=== PATIENT | female | born 1965 | race Caucasian/White ===

== ENCOUNTER 2020-10-20 15:47 | Inpatient (IN) | payer BC, SELFPAY ==
[~2020-10-20] VITALS: Ht 165.1 cm; Wt 63.5 kg
[2020-10-20 16:01] VITALS: BP_SYST 161
--- NOTE | 2020-10-20 16:04 | NUR ---
Patient to ER bed 06 to gown for evaluation. Side rails up.
--- NOTE | 2020-10-20 16:10 | NUR ---
ER DR. FENG AT THE BEDSIDE EVALUATING PT
--- NOTE | 2020-10-20 16:15 | NUR ---
PT CAME IN FROM HOME WITH C/O ESTES STARTING THIS MORNING. REPORTS THAT IS HAS BEEN UNRELIEVED WITH AT HOME MOTRIN. REPORTS FEELING GENERALLY WEAK AND ACHY. PT AMBULATORY WITH STEADY GAIT. AAOX4, V/S STABLE
[2020-10-20] MEDS ORDERED: ONDANSETRON HCL 4 MG/2 ML VIAL IVP ONE ×3 (16:30→22:15)
[2020-10-20] MEDS ORDERED: fentaNYL CITRATE/PF 100 MCG/2 ML AMP IVP ONE ×3 (16:30→22:15)
[2020-10-20] MEDS ORDERED: NACL 0.9% 1,000 ML IV ONE (16:30)
[2020-10-20 17:12] LABS: HEMATOCRIT 34.3 % (36-48); HEMOGLOBIN 11.1 g/dL (12.0-16.0); MEAN CORPUSCULAR HEMOGLOBIN 27 pg (27-31); MEAN CORPUSCULAR HGB CONC 32 % (32-36); MEAN CORPUSCULAR VOLUME 82 fL (79.0-98.0); PLATELET COUNT (AUTO) 644 K/uL (130-430); RED BLOOD CELL COUNT(AUTO) 4.18 MIL/uL (4.2-6.2); RED CELL DISTRIBUTION WIDTH 15.3 % (9.0-15.0); WHITE BLOOD COUNT (AUTO) 29.6 K/uL (4.8-10.8)
[2020-10-20 17:17] LABS: BILIRUBIN,URINE 1+ (NEGATIVE); COLOR,URINE YELLOW (YELLOW); GLUCOSE,URINE NEGATIVE (NEGATIVE); KETONES,URINE 3+ (NEGATIVE); LEUKOCYTE ESTERASE ,URINE NEGATIVE (NEGATIVE); NITRITE, URINE NEGATIVE (NEGATIVE); PROTEIN URINE NEGATIVE (NEGATIVE); UROBILINOGEN,URINE 0.2 (0.2-1.0)
[2020-10-20 17:20] LABS: ANION GAP 11 (5-15); CHLORIDE 99 mmol/L (98-107); CREATININE 0.67 mg/dL (0.55-1.30); GLUCOSE 112 mg/dL (70-99); POTASSIUM 3.2 mmol/L (3.5-5.1); SODIUM SERUM 133 mmol/L (136-145); UREA NITROGEN, BLOOD 11 mg/dL (8-21)
[2020-10-20 17:29] LABS: ALANINE AMINOTRANSFERASE 21 U/L (12-78); ALBUMIN 3.9 g/dL (3.4-4.8); ASPARTATE AMINOTRANSFERASE 20 U/L (10-37); TOTAL BILIRUBIN 0.5 mg/dL (0.0-1.0)
[2020-10-20 17:30] LABS: INR 0.9 (0.8-1.2); PROTHROMBIN TIME 9.7 SECS (9.5-12.5)
[2020-10-20 17:37] LABS: ALCOHOL, BLOOD < 3 mg/dL (<10); GFR AFRICAN AMERICAN 118 mL/min (>90)
[2020-10-20 17:54] LABS: BARBITURATE, URINE NEGATIVE (NEG <=200); BENZODIAZEPINE, URINE NEGATIVE (NEG <=150); CANNABINOID, URINE NEGATIVE (NEG <=50); COCAINE, URINE NEGATIVE (NEG <=150); METHAMPHETAMINES SCREEN,URINE NEGATIVE (NEG <=500); OPIATE, URINE NEGATIVE (NEG <=100); PHENCYCLIDINE SCREEN,URINE NEGATIVE (NEG <=25); UR TRICYCLIC ANTIDEPRESSANTS NEGATIVE (NEG <=300); URINE AMPHETAMINE NEGATIVE (NEG <=500); URINE METHADONE NEGATIVE (NEG <=200); URINE OXYCODONE SCREEN NEGATIVE (NEG <=100); URINE PROPOXYPHENE SCREEN NEGATIVE (NEG <=300)
[2020-10-20 18:14] LABS: BLOOD, URINE TRACE (NEGATIVE)
--- NOTE | 2020-10-20 18:30 | NUR ---
PT'S PAIN HAS RETURNED AND IS REQUESTING MORE PAIN MEDICATION. MD MADE AWARE
[2020-10-20 18:41] LABS: CLARITY/URINE SLIGHTLY HAZY (CLEAR)
[2020-10-20 18:42] LABS: BACTERIA,URINE FEW /HPF (None Seen); MUCUS,URINE 1+ /LPF (None Seen); WBC,URINE 0-3 /HPF (0-3)
[2020-10-20 18:50] LABS: BAND % (MANUAL) 17 % (0-6)
[2020-10-20 18:51] LABS: BASOPHILS % (MANUAL) 0 % (0-2); EOSINOPHILS % (MANUAL) 0 % (0-7); LYMPHOCYTES % (MANUAL) 1 % (20-46); MONOCYTES % (MANUAL) 3 % (0-11)
[2020-10-20] MEDS ORDERED: cefTRIAXone 2 GM VIAL ONE (19:01)
--- NOTE | 2020-10-20 19:04 | NUR ---
DR. FENG AT [facility] BEDSIDE FOR LUMBAR PUNCTURE
--- NOTE | 2020-10-20 19:30 | NUR ---
SPINAL FLUID SPECIMEN COLLECTED BY AND SENT TO LAB
[2020-10-20] MEDS ORDERED: DEXAMETHASONE SOD PHOSPHATE 4 MG/ML VIAL ONE (19:37)
[2020-10-20] MEDS ORDERED: DEXAMETHASONE SOD PHOSPHATE 10 MG/ML VIAL ONE (19:37)
[2020-10-20] MEDS ORDERED: D5W IV ONE (19:45)
[2020-10-20] MEDS ORDERED: DEXAMETHASONE SOD PHOSPHATE 10 MG/ML VIAL IVP ONE (19:45)
[2020-10-20] MEDS ORDERED: ACYCLOVIR IV ONE (19:45)
--- NOTE | 2020-10-20 19:50 | NUR ---
REPORT GIVEN TO JENNIFER GARDINER FOR CONTINUING CARE
[2020-10-20] MEDS ORDERED: ACYCLOVIR SODIUM 50 MG/ML VIAL IV ONE (19:53)
--- NOTE | 2020-10-20 20:05 | NUR ---
VSS no s/s of acute distress Resting on gurney rails up
--- NOTE | 2020-10-20 21:11 | NUR ---
Dr. Gomez performed LP bedside , well tolerated, CSF sent to lab for analysis
[2020-10-20] MEDS ORDERED: KETOROLAC TROMETHAMINE 30 MG VIAL IVP ONE (22:15)
--- NOTE | 2020-10-20 22:15 | NUR ---
Pt pain control in stable condition, IV therapy well tolerated
[2020-10-20 23:01] LABS: CSF COLOR COLORLESS (COLORLESS)
[2020-10-20 23:02] LABS: CSF APPEARANCE HAZY (CLEAR); CSF RED BLOOD CELL COUNT #1 260 /uL (0-0); CSF WHITE BLOOD CELL COUNT #1 6390 /uL (0-5)
[2020-10-20 23:04] LABS: CSF PROTEIN 319 mg/dL (15-45)
[2020-10-20 23:06] LABS: CSF GLUCOSE 34 mg/dL (40-70)
--- NOTE | 2020-10-20 23:12 | NUR ---
VSS no s/s of acute distress Resting on gurney rails up
[2020-10-20] MEDS ORDERED: ONDANSETRON HCL 4 MG/2 ML VIAL IVP PRN (23:15)
[2020-10-20] MEDS: KCL 20 mEq in D5/0.45NS 1000mL 1,000 ML IV SCH (23:15)
[2020-10-20 23:19] LABS: CSF RED BLOOD CELL COUNT #4 55 /uL (0-0); CSF WHITE BLOOD CELL COUNT #4 3340 /uL (0-5)
[2020-10-20 23:29] LABS: CSF LYMPHOCYTES 2 % (40-80)
[2020-10-20 23:32] LABS: CSF MONOCYTES 8 % (15-45)
[2020-10-20 23:33] LABS: CSF LYMPHOCYTES #4 1 % (40-80); CSF NEUTROPHILS 90 % (0-6)
[2020-10-20 23:34] LABS: CSF MONOCYTES #4 12 % (15-45); CSF NEUTROPHILS #4 87 % (0-6)
--- NOTE | 2020-10-21 00:15 | NUR ---
Dr. Banda bedside for pt update
--- NOTE | 2020-10-21 01:00 | NUR ---
Pt adm to Tele, may have bed assignment shortly
--- NOTE | 2020-10-21 02:00 | NUR ---
VSS no s/s of acute distress Resting on gurney rails up
--- NOTE | 2020-10-21 02:34 | NUR ---
ADMIT NOTE Received pt from ER to the floor with a diagnosis of possible meningitis. Admission process initiated. patient oriented to pain management, safety and call light-teach back done.
--- NOTE | 2020-10-21 02:36 | NUR ---
Patient will be admitted to care of Dr. Ho. Admitted to Tele unit. Will go to room 115. Belongings list completed. Complete and up to date summary report printed. SBAR report to be given at bedside with opportunity for questions.
--- NOTE | 2020-10-21 02:36 | NUR ---
Transfer to Tele via ACLS protocol. Licensed nurse present. IV present no signs or symptoms of infiltration.
[2020-10-21 02:43] VITALS: BP_SYST 139
--- NOTE | 2020-10-21 03:23 | NUR ---
CONSULTATION PAGED/CALLED Reason for Consultation: POSSIBLE MENINGITIS Person Who was Notified: NADIA BARBER NOTIFIED BY ER STAFF Consulting Physician: DR. ELLIS Supervisor Webbing Specialty: ID Ordering Physician: KELLY
[2020-10-21] MEDS: HYDROmorphone 1 MG INJ. 1 MG/ML AMPUL IVP PRN ×4 (03:26→23:40)
[2020-10-21 06:36] LABS: HEMATOCRIT 28.6 % (36-48); HEMOGLOBIN 9.6 g/dL (12.0-16.0); LYMPHOCYTES # (AUTO) 0.3 K/uL (1.0-5.5); LYMPHOCYTES % (AUTO) 1.8 % (20.5-51.5); MEAN CORPUSCULAR HEMOGLOBIN 27 pg (27-31); MEAN CORPUSCULAR HGB CONC 34 % (32-36); MEAN CORPUSCULAR VOLUME 82 fL (79.0-98.0); MONOCYTES # (AUTO) 0.6 K/uL (0.0-1.0); MONOCYTES % (AUTO) 3.3 % (1.7-9.3); NEUTROPHILS # (AUTO) 17.7 K/uL (1.8-7.7); PLATELET COUNT (AUTO) 549 K/uL (130-430); RED BLOOD CELL COUNT(AUTO) 3.51 MIL/uL (4.2-6.2); RED CELL DISTRIBUTION WIDTH 15.7 % (9.0-15.0); WHITE BLOOD COUNT (AUTO) 18.7 K/uL (4.8-10.8)
[2020-10-21 06:42] LABS: CALCIUM 8.8 mg/dL (8.4-11.0); CREATININE 0.71 mg/dL (0.55-1.30)
[2020-10-21 07:36] LABS: NEUTROPHILS % (AUTO) 94.9 % (40.0-70.0)
[2020-10-21 08:23] VITALS: BP_SYST 140
[2020-10-21] MEDS ORDERED: ACYCLOVIR IV SCH (09:00)
[2020-10-21] MEDS: LISINOPRIL 10 MG TABLET (PRINIVIL) PO SCH (09:00)
[2020-10-21] MEDS ORDERED: D5W IV SCH (09:00)
[2020-10-21] MEDS: cefTRIAXone 1 GM IVPB PREMIX 50 ML IV SCH ×2 (09:50→21:00)
[2020-10-21] MEDS: KCL 20 mEq in D5/0.45NS 1000mL 1,000 ML IV SCH ×2 (10:00→19:15)
[2020-10-21 12:00] VITALS: BP_SYST 135
--- NOTE | 2020-10-21 15:18 | NUR ---
SS notes: LEATHER GOODS I ASSEMBLER was referred by CM for DCP. LEATHER GOODS I ASSEMBLER phoned spouse, Nathen @ [phone]. Pt is a 55 y/o female who came in via ED for headache, and "spine hurting". Per Nathen, patient started having symptoms on 10/20 prompting him to bring pt to the ED. Pt lives with spouse and child. Pt is independent with her ADL's and does not utilize any DME. Pt does not have any history of mental health or substance use/abuse. 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 If SNF or HHS is indicated; pt does not have a preference as to where. No further SS needs identified.
[2020-10-21 16:30] VITALS: BP_SYST 154
--- NOTE | 2020-10-21 18:25 | NUR ---
CONSULTATION PAGED/CALLED Reason for Consultation: [] MENINGITIS Person Who was Notified: [] SARA Consulting Physician: [] DR ELLIS Service Shop Foreman Specialty: [] ID Ordering Physician: [] DR MENDOZA
--- NOTE | 2020-10-21 18:36 | NUR ---
RN NOTES:ALERT AND ORIENTED. AMBULATORY WITH STEADY GAIT. NOT IN RESPIRATORY DISTRESS. AT ROOM AIR WITH GOOD SATURATION. COMPLAINED OF PAIN ON HER HEAD. GIVEN PAIN MEDICATION WITH RELIEF. ISOLATION PRECAUTION OBSERVED. ALL DUE MEDICATIONS GIVEN. KEPT COMFORTABLE. STABLE.
[2020-10-21 19:45] VITALS: BP_SYST 143
[2020-10-21] MEDS ORDERED: VANCOMYCIN HCL 1 GM/NS PREMIX 250 ML IV ONE (21:30)
[2020-10-21] MEDS: ACETAMINOPHEN 325 MG TABLET PO PRN (21:47)
[2020-10-21] MEDS: ENOXAPARIN SODIUM 40 MG/0.4 ML SYRINGE SUBCUT SCH (21:48)
[2020-10-21] MEDS ORDERED: VANCOMYCIN HCL 1000 MG/VIAL IV ONE (21:55)
[2020-10-21] MEDS ORDERED: cefTRIAXone 1 GM IVPB PREMIX 50 ML IV ONE (21:56)
[2020-10-21] MEDS ORDERED: KCL 20 mEq in D5/0.45NS 1000mL 1,000 ML IV ONE (21:57)
--- NOTE | 2020-10-21 23:45 | NUR ---
PAIN NOTE PATIENT IS COMPLAINING OF PAIN, PRN MEDICATION IS GIVEN AT THIS TIME FOR PATIENTS PAIN COMPLAINT PER MD ORDERS. WILL REASSESS IF PRN MEDICATION GIVEN WAS EFFECTIVE. CALL LIGHT PLACED WITHIN REACH. BED IS LOCKED, ALARMED, AND AT THE LOWEST LEVEL.
[2020-10-22] MEDS: KCL 20 mEq in D5/0.45NS 1000mL 1,000 ML IV SCH ×2 (04:15→14:04)
--- NOTE | 2020-10-22 06:30 | NUR ---
CLOSING NOTE PATIENT SLEPT WELL THROUGHOUT THE SHIFT, NO FEVER, NO SHORTNESS OF BREATH NOTED. AT THIS TIME, PATIENT IS RESTING IN BED, STABLE, NO SIGNS OF RESPIRATORY DISTRESS. CALL LIGHT IS WITHIN REACH. BED IS LOCKED, ALARMED, AND AT THE LOWEST LEVEL. FALL, SAFETY, ISOLATION, AND RESPIRATORY PRECAUTIONS HAVE BEEN TAKEN THROUGHOUT THE SHIFT. WILL CONTINUE TO MONITOR UNTIL SHIFT REPORT IS GIVEN AT BEDSIDE TO AM NURSE.
[2020-10-22 07:45] LABS: BASOPHILS # (AUTO) 0.1 K/uL (0.0-0.2); BASOPHILS % (AUTO) 0.6 % (0.0-2.0); EOSINOPHILS % (AUTO) 0.1 % (0.0-4.0); HEMATOCRIT 26.8 % (36-48); HEMOGLOBIN 8.6 g/dL (12.0-16.0); LYMPHOCYTES # (AUTO) 1.6 K/uL (1.0-5.5); LYMPHOCYTES % (AUTO) 11.5 % (20.5-51.5); MEAN CORPUSCULAR HEMOGLOBIN 27 pg (27-31); MEAN CORPUSCULAR HGB CONC 32 % (32-36); MEAN CORPUSCULAR VOLUME 83 fL (79.0-98.0); MONOCYTES # (AUTO) 1.1 K/uL (0.0-1.0); MONOCYTES % (AUTO) 8.4 % (1.7-9.3); NEUTROPHILS # (AUTO) 10.8 K/uL (1.8-7.7); NEUTROPHILS % (AUTO) 79.4 % (40.0-70.0); PLATELET COUNT (AUTO) 549 K/uL (130-430); RED BLOOD CELL COUNT(AUTO) 3.23 MIL/uL (4.2-6.2); RED CELL DISTRIBUTION WIDTH 16.1 % (9.0-15.0); WHITE BLOOD COUNT (AUTO) 13.7 K/uL (4.8-10.8)
--- NOTE | 2020-10-22 08:00 | NUR ---
RN NOTES:RECEIVED PATIENT AWAKE,ALERT AND ORIENTED. VERBALLY RESPONSIVE AND COOPERATIVE. NOT IN RESPIRATORY DISTRESS. NOT IN PAIN AT THIS TIME. STABLE. WILL CONTINUE TO MONITOR PATIENT.
[2020-10-22 08:22] LABS: CALCIUM 8.3 mg/dL (8.4-11.0); CREATININE 0.63 mg/dL (0.55-1.30); POTASSIUM 4.3 mmol/L (3.5-5.1)
[2020-10-22 08:36] VITALS: BP_SYST 124
[2020-10-22] MEDS: LISINOPRIL 10 MG TABLET (PRINIVIL) PO SCH (09:00)
[2020-10-22 09:38] LABS: C-REACTIVE PROTEIN QUANT 15.3 mg/dL (0-0.5)
[2020-10-22] MEDS: cefTRIAXone 1 GM IVPB PREMIX 50 ML IV SCH ×2 (09:45→23:14)
[2020-10-22] MEDS: ACETAMINOPHEN 325 MG TABLET PO PRN ×2 (09:46→18:42)
[2020-10-22 11:36] LABS: ERYTHROCYTE SEDIMENTATION RATE 56 MM/HR (0-20)
[2020-10-22] MEDS: VANCOMYCIN HCL 750 MG in NS 250 ML IV SCH ×2 (11:49→23:17)
[2020-10-22 12:48] VITALS: BP_SYST 130
[2020-10-22 18:03] VITALS: BP_SYST 135
--- NOTE | 2020-10-22 19:30 | NUR ---
OPENING NOTES Pt and endorsement received from day shift nurse. Pt is AAOx4, lying in bed. No complains of pain at this time. No signs of acute distress or SOB noted. IVF is infusing well. Safety precautions in place with 3 side rails up and bed on lowest level. Call light with pt. Will continue to monitor.
[2020-10-22 23:00] VITALS: BP_SYST 132
[2020-10-22] MEDS: ENOXAPARIN SODIUM 40 MG/0.4 ML SYRINGE SUBCUT SCH (23:16)
--- NOTE | 2020-10-22 23:17 | NUR ---
ROUNDS All due meds given. No complains of pain and no signs of acute distress noted. IVF infusing well. Safety precautions in place and call light with pt. Will continue to monitor.
[2020-10-23 00:15] VITALS: BP_SYST 141
[2020-10-23] MEDS: KCL 20 mEq in D5/0.45NS 1000mL 1,000 ML IV SCH ×2 (03:34→17:04)
[2020-10-23] MEDS: ACETAMINOPHEN 325 MG TABLET PO PRN ×2 (03:34→22:28)
--- NOTE | 2020-10-23 03:34 | NUR ---
ROUNDS Pt complained of headache, pain med given as ordered. No signs of acute distress noted. Will continue to monitor.
--- NOTE | 2020-10-23 07:04 | NUR ---
CLOSING NOTES Pt is resting in bed with both eyes closed, with visible chest rise and fall with non-labored breathing noted. No complains of pain and no signs of acute distress or SOB noted. IVF is infusing well. All needs attended throughout the shift. Safety precautions maintained with 3 side rails up and bed in lowest level. Call light with pt. Will endorse to day shift nurse.
[2020-10-23 08:00] VITALS: BP_SYST 144
[2020-10-23 08:46] LABS: BASOPHILS # (AUTO) 0.1 K/uL (0.0-0.2); BASOPHILS % (AUTO) 0.9 % (0.0-2.0); EOSINOPHILS # (AUTO) 0.1 K/uL (0.0-0.4); EOSINOPHILS % (AUTO) 0.9 % (0.0-4.0); HEMATOCRIT 28.6 % (36-48); HEMOGLOBIN 9.4 g/dL (12.0-16.0); LYMPHOCYTES # (AUTO) 2.1 K/uL (1.0-5.5); LYMPHOCYTES % (AUTO) 26.9 % (20.5-51.5); MEAN CORPUSCULAR HEMOGLOBIN 27 pg (27-31); MEAN CORPUSCULAR HGB CONC 33 % (32-36); MEAN CORPUSCULAR VOLUME 83 fL (79.0-98.0); NEUTROPHILS # (AUTO) 4.5 K/uL (1.8-7.7); NEUTROPHILS % (AUTO) 58.3 % (40.0-70.0); PLATELET COUNT (AUTO) 626 K/uL (130-430); RED BLOOD CELL COUNT(AUTO) 3.45 MIL/uL (4.2-6.2); RED CELL DISTRIBUTION WIDTH 15.7 % (9.0-15.0); WHITE BLOOD COUNT (AUTO) 7.8 K/uL (4.8-10.8)
[2020-10-23 09:16] LABS: ALBUMIN 2.8 g/dL (3.4-4.8); CALCIUM 8.5 mg/dL (8.4-11.0); CREATININE 0.7 mg/dL (0.55-1.30); POTASSIUM 4.5 mmol/L (3.5-5.1); TOTAL BILIRUBIN 0.2 mg/dL (0.0-1.0)
[2020-10-23] MEDS: LISINOPRIL 10 MG TABLET (PRINIVIL) PO SCH (09:19)
[2020-10-23] MEDS: cefTRIAXone 1 GM IVPB PREMIX 50 ML IV SCH ×2 (09:19→21:28)
[2020-10-23] MEDS: VANCOMYCIN HCL 750 MG in NS 250 ML IV SCH ×2 (10:35→22:28)
[2020-10-23 12:10] VITALS: BP_SYST 134
[2020-10-23 16:12] VITALS: BP_SYST 144
[2020-10-23 20:00] VITALS: BP_SYST 156
[2020-10-23] MEDS: ENOXAPARIN SODIUM 40 MG/0.4 ML SYRINGE SUBCUT SCH (21:29)
[2020-10-24] VITALS: BP_SYST 148
[2020-10-24] MEDS: KCL 20 mEq in D5/0.45NS 1000mL 1,000 ML IV SCH ×2 (04:00→13:37)
[2020-10-24 06:57] LABS: BASOPHILS # (AUTO) 0.1 K/uL (0.0-0.2); BASOPHILS % (AUTO) 1.1 % (0.0-2.0); EOSINOPHILS # (AUTO) 0.1 K/uL (0.0-0.4); EOSINOPHILS % (AUTO) 1.7 % (0.0-4.0); HEMATOCRIT 30.1 % (36-48); LYMPHOCYTES # (AUTO) 1.3 K/uL (1.0-5.5); LYMPHOCYTES % (AUTO) 19.4 % (20.5-51.5); MEAN CORPUSCULAR HEMOGLOBIN 27 pg (27-31); MEAN CORPUSCULAR HGB CONC 33 % (32-36); MEAN CORPUSCULAR VOLUME 82 fL (79.0-98.0); MONOCYTES # (AUTO) 0.8 K/uL (0.0-1.0); MONOCYTES % (AUTO) 11.3 % (1.7-9.3); NEUTROPHILS # (AUTO) 4.4 K/uL (1.8-7.7); NEUTROPHILS % (AUTO) 66.5 % (40.0-70.0); PLATELET COUNT (AUTO) 747 K/uL (130-430); RED BLOOD CELL COUNT(AUTO) 3.66 MIL/uL (4.2-6.2); RED CELL DISTRIBUTION WIDTH 15.9 % (9.0-15.0); WHITE BLOOD COUNT (AUTO) 6.7 K/uL (4.8-10.8)
[2020-10-24 08:00] VITALS: BP_SYST 146
[2020-10-24] MEDS: cefTRIAXone 1 GM IVPB PREMIX 50 ML IV SCH (08:04)
[2020-10-24] MEDS: LISINOPRIL 10 MG TABLET (PRINIVIL) PO SCH (08:04)
[2020-10-24] MEDS: VANCOMYCIN HCL 750 MG in NS 250 ML IV SCH (08:05)
[2020-10-24] MEDS: ACETAMINOPHEN 325 MG TABLET PO PRN (08:08)
[2020-10-24 08:29] LABS: CALCIUM 9.1 mg/dL (8.4-11.0); CREATININE 0.64 mg/dL (0.55-1.30); POTASSIUM 3.8 mmol/L (3.5-5.1); TOTAL BILIRUBIN 0.2 mg/dL (0.0-1.0)
[2020-10-24 11:30] VITALS: BP_SYST 156
--- NOTE | 2020-10-24 11:40 | NUR ---
alert, oriented, calm, despite the fact " i have severe estes, i just Tylenol , which was given. " only took the edge of" suggested DILAUDID , ivp, declined. " It made my ESTES worse" Continues with ivf, and double abx, Rocephin, and Vanco. Appetite good all meals.
[2020-10-24 17:05] VITALS: BP_SYST 136
--- NOTE | 2020-10-24 17:49 | NUR ---
became frustrated, " one dr told me i can go home, the other said no". actually, id, dr Hall did tell the patient he would in touch with the attending, the patient cleared for discharge. attending made rounds at 1730, and decided to discharge the patient RX for abx , po, and Lisinopril for her high bloodpressure given, alert, oriented, no needs for flu vaccine, discharged to home right now .
== END 2020-10-24 17:50 | disposition home or self-care (01) | DRG 871 ==
LOC: SED 15:47 → STU 23:02 → SMU 10-21 16:54
PROVIDERS: ADMIT Family Medicine; ATTEND Family Medicine
PROC: 009U3ZX Drainage of Spinal Canal, Percutaneous Approach, Diagnostic (ICD-10-PCS; principal; 2020-10-20)
DX: A41.9 Sepsis, unspecified organism (principal); G00.1 Pneumococcal meningitis; M54.2 Cervicalgia; I10 Essential (primary) hypertension; J32.9 Chronic sinusitis, unspecified; Z20.828 Contact with and (suspected) exposure to other viral communicable diseases
CPT/HCPCS: 36415; 36600; 70450-TC; 71045; 76376; 80048; 80053; 80202-TC; 80307; 81000-TC; 82803-TC; 82947-TC; 83605; 83735-TC; 84157-TC; 84484; 85007; 85025; 85027; 85048; 85610-TC; 85651-TC; 85730-TC; 86140; 86480; 86635; 86788; 86789; 87040-TC; 87070-TC; 87086; 87205-TC; 89051-TC; 93005; 96365; 96367; 96375; 96376; 99291; G0378; G0482; J0133; J0696; J1100; J1170; J1650; J1885; J2405; J3010; J3370; J7050; J7060

== ENCOUNTER 2020-12-02 18:26 | Inpatient (IN) | payer BC, SELFPAY ==
[~2020-12-02] VITALS: Ht 167.6 cm; Wt 64.0 kg
[2020-12-02 18:40] VITALS: BP_SYST 127
--- NOTE | 2020-12-02 18:40 | NUR ---
PT TO REMAIN IN BROWN TENT FOR EVALUATION DUE TO COVID S/S.
--- NOTE | 2020-12-02 19:00 | NUR ---
PT ALERT AND ORIENTED REPORTING FEVER, CHILLS, AND BODY ACHES FOR THE PAST FEW DAYS. PT REPORTS WORSENING SYMPTOMS AND HAS HISTORY OF RECENT MENINGITIS 1 MONTH AND A HALF AGO.
--- NOTE | 2020-12-02 20:55 | NUR ---
ED MD SHELTON EVALUATING PT
[2020-12-02] MEDS ORDERED: ACETAMINOPHEN 500 MG TABLET PO ONE (21:00)
[2020-12-02] MEDS ORDERED: NACL 0.9% 1,000 ML IV ONE ×3 (21:00→22:45)
--- NOTE | 2020-12-02 21:05 | NUR ---
PT MOVED TO BED 8
--- NOTE | 2020-12-02 21:15 | NUR ---
PORTABLE CXR DONE AT BEDSIDE
[2020-12-02 21:44] LABS: BILIRUBIN,URINE NEGATIVE (NEGATIVE); CLARITY/URINE CLEAR (CLEAR); COLOR,URINE YELLOW (YELLOW); GLUCOSE,URINE NEGATIVE (NEGATIVE); KETONES,URINE NEGATIVE (NEGATIVE); LEUKOCYTE ESTERASE ,URINE TRACE (NEGATIVE); NITRITE, URINE NEGATIVE (NEGATIVE); PROTEIN URINE NEGATIVE (NEGATIVE); UROBILINOGEN,URINE 0.2 (0.2-1.0)
[2020-12-02 21:54] LABS: BLOOD, URINE TRACE (NEGATIVE)
[2020-12-02 21:55] LABS: BACTERIA,URINE FEW /HPF (None Seen); RBC,URINE NONE SEEN /HPF (0-3)
[2020-12-02 21:56] LABS: MUCUS,URINE None Seen /LPF (None Seen)
[2020-12-02 21:57] LABS: BASOPHILS # (AUTO) 0.1 K/uL (0.0-0.2); BASOPHILS % (AUTO) 0.4 % (0.0-2.0); EOSINOPHILS # (AUTO) 0.2 K/uL (0.0-0.4); EOSINOPHILS % (AUTO) 0.8 % (0.0-4.0); HEMATOCRIT 34.7 % (36-48); HEMOGLOBIN 11.3 g/dL (12.0-16.0); LYMPHOCYTES # (AUTO) 0.3 K/uL (1.0-5.5); LYMPHOCYTES % (AUTO) 1.6 % (20.5-51.5); MEAN CORPUSCULAR HEMOGLOBIN 25 pg (27-31); MEAN CORPUSCULAR HGB CONC 32 % (32-36); MEAN CORPUSCULAR VOLUME 77 fL (79.0-98.0); MONOCYTES # (AUTO) 0.3 K/uL (0.0-1.0); MONOCYTES % (AUTO) 1.7 % (1.7-9.3); NEUTROPHILS # (AUTO) 19.2 K/uL (1.8-7.7); NEUTROPHILS % (AUTO) 95.5 % (40.0-70.0); PLATELET COUNT (AUTO) 407 K/uL (130-430); RED BLOOD CELL COUNT(AUTO) 4.52 MIL/uL (4.2-6.2); RED CELL DISTRIBUTION WIDTH 16.2 % (9.0-15.0)
[2020-12-02 22:03] LABS: CALCIUM 9.2 mg/dL (8.4-11.0); CREATININE 0.87 mg/dL (0.55-1.30); POTASSIUM 3.3 mmol/L (3.5-5.1)
[2020-12-02 22:08] LABS: TOTAL BILIRUBIN 0.5 mg/dL (0.0-1.0)
[2020-12-02 22:15] LABS: WHITE BLOOD COUNT (AUTO) 20.1 K/uL (4.8-10.8)
[2020-12-02] MEDS ORDERED: VANCOMYCIN HCL 1,000 MG in NS 250 ML IV ONE (22:45)
[2020-12-02] MEDS ORDERED: DEXAMETHASONE SOD PHOSPHATE 10 MG/ML VIAL IVP ONE (22:45)
[2020-12-02] MEDS ORDERED: AMPICILLIN SODIUM 1 GM in NS 50 ML IV ONE (22:45)
--- NOTE | 2020-12-02 22:47 | NUR ---
ADMISSION ORDERS RECEIVED FROM DR. MENDOZA. PT TO BE ADMITTED TO TELE FOR UTI/SEPSIS.
[2020-12-02] MEDS ORDERED: cefTRIAXone 2 GM VIAL ONE (22:51)
[2020-12-02] MEDS ORDERED: AMPICILLIN SODIUM 1 GM VIAL ONE (23:02)
[2020-12-02] MEDS ORDERED: VANCOMYCIN HCL 1000 MG/VIAL IV ONE (23:09)
[2020-12-02] MEDS ORDERED: KCL 20 mEq in D5NS 1000 mL 1,000 ML IV ONE (23:26)
[2020-12-02] MEDS: KCL 20 mEq in D5NS 1000 mL 1,000 ML IV SCH (23:40)
--- NOTE | 2020-12-03 00:05 | NUR ---
ED MD AT BEDSIDE PERFORMING BEDSIDE LUMBAR PUNCTURE SAMPLES COLLECTED AND SENT TO LAB AWAITNG RESULTS
--- NOTE | 2020-12-03 00:23 | NUR ---
PT RESTING QUIETLY IN BED DENIES PAIN OF ANY KIND PT VITAL SIGNS STABLE WILL CONTINUE TO MONITOR
[2020-12-03] MEDS ORDERED: ACETAMINOPHEN 325 MG TABLET PO PRN (00:30)
[2020-12-03] MEDS ORDERED: ONDANSETRON HCL 4 MG/2 ML VIAL IVP PRN (00:30)
--- NOTE | 2020-12-03 00:55 | NUR ---
PT TRASNPORTED TO 108 TELE BED ON TELE MONITOR VIA ED GURNEY WITH SIDE RAILS UP PT VITALS STABLE ENROUTE BEDSIDE REPORT GIVEN TO [facility] WHO WILL ASSUME CARE OF PT.
--- NOTE | 2020-12-03 00:55 | NUR ---
Cipriano smith in ED - 12/03/20 at 0058 by [email or web address] PT TRASNPORTED TO 108 TELE BED ON TELE MONITOR VIA MARY PAULINO WITH SIDE RAILS UP PT VITALS STABLE ENROUTE BEDSIDE REPORT GIVEN TO SUPERVISOR DOCKJENNIFER PARTIDA WHO WILL ASSUME CARE OF PT.
[2020-12-03 01:26] VITALS: BP_SYST 123
--- NOTE | 2020-12-03 01:30 | NUR ---
ADMIT NOTE Received pt from ER to the floor with a diagnosis of uti/sepsis. Admission process initiated. patient oriented to pain management, safety and call light-teach back done.
[2020-12-03] MEDS ORDERED: PIPERACILLIN/TAZOBACTAM 3.375 GM/VIAL (ZOSYN) IV ONE (01:42)
[2020-12-03 01:54] LABS: CSF APPEARANCE CLEAR (CLEAR); CSF COLOR COLORLESS (COLORLESS); CSF RED BLOOD CELL COUNT #1 511 /uL (0-0); CSF VOLUME 1.8 mL; CSF WHITE BLOOD CELL COUNT #1 2 /uL (0-5)
[2020-12-03 01:55] LABS: CSF GLUCOSE 65 mg/dL (40-70); CSF PROTEIN 31 mg/dL (15-45); CSF RED BLOOD CELL COUNT #4 6 /uL (0-0); CSF WHITE BLOOD CELL COUNT #4 1 /uL (0-5)
--- NOTE | 2020-12-03 02:00 | NUR ---
initial notes: pt is awake, alert, oriented x4, no pain, no distress, stable vital sign, pt has ivf infusing on both right and left ac-infusing well. pt is ambulatory to bathroom with steady gait. explain plan of care to pt, safety, medication, orient to room and call light. pt verbalized understanding. call light in reach, side rails up. low bed position and lock. will monitor.
[2020-12-03] MEDS: PIPERACILLIN/TAZO 3.375/DEX-IS 50 ML IV SCH ×4 (02:04→17:33)
--- NOTE | 2020-12-03 04:00 | NUR ---
pt is sleeping, comfortable, no pain, no sob, not distress. stable. call light with the pt.
--- NOTE | 2020-12-03 06:00 | NUR ---
sleeping, comfortable. no pain, not distress. call light in reach.
--- NOTE | 2020-12-03 06:04 | NUR ---
ID Consult consult for Dr Anderson was called, Dr Delgado is installation service representative [phone] RE Sepsis S/W Sergey
--- NOTE | 2020-12-03 07:00 | NUR ---
closing: pt is resting, no pain, not distress, stable, ivf infusing well. needs attended the whole, ambulatory with steady gait. call light in reach. will give sbar reporting to am rn.
[2020-12-03 08:00] VITALS: BP_SYST 119
--- NOTE | 2020-12-03 08:00 | NUR ---
initial notes rec patient awake alert with ivf infusing well on the l ac. no infiltration noted. resp easy and unlabored. no sob noted. bed to the lowest position and side rails up and locked. call light within reached. will continue to monitor patient.
[2020-12-03] MEDS: KCL 20 mEq in D5NS 1000 mL 1,000 ML IV SCH ×2 (10:50→20:16)
[2020-12-03 12:14] VITALS: BP_SYST 123
[2020-12-03 15:21] LABS: BASOPHILS % (AUTO) 0.2 % (0.0-2.0); HEMATOCRIT 27.6 % (36-48); LYMPHOCYTES # (AUTO) 0.3 K/uL (1.0-5.5); LYMPHOCYTES % (AUTO) 1.7 % (20.5-51.5); MEAN CORPUSCULAR HEMOGLOBIN 25 pg (27-31); MEAN CORPUSCULAR HGB CONC 33 % (32-36); MEAN CORPUSCULAR VOLUME 77 fL (79.0-98.0); MONOCYTES # (AUTO) 0.3 K/uL (0.0-1.0); MONOCYTES % (AUTO) 1.8 % (1.7-9.3); NEUTROPHILS # (AUTO) 17.9 K/uL (1.8-7.7); NEUTROPHILS % (AUTO) 96.3 % (40.0-70.0); PLATELET COUNT (AUTO) 362 K/uL (130-430); RED CELL DISTRIBUTION WIDTH 15.8 % (9.0-15.0); WHITE BLOOD COUNT (AUTO) 18.6 K/uL (4.8-10.8)
[2020-12-03 15:36] LABS: CALCIUM 8.7 mg/dL (8.4-11.0); CREATININE 0.89 mg/dL (0.55-1.30); POTASSIUM 3.9 mmol/L (3.5-5.1)
[2020-12-03 15:43] LABS: TOTAL BILIRUBIN 0.2 mg/dL (0.0-1.0)
[2020-12-03 16:28] VITALS: BP_SYST 108
[2020-12-03 19:00] VITALS: BP_SYST 127
--- NOTE | 2020-12-03 19:03 | NUR ---
closing notes resting comfortably. bed to the lowest position and side rails up and locked. call light within reached. due med given and andreia well.
[2020-12-03 20:00] VITALS: BP_SYST 113
[2020-12-03] MEDS ORDERED: ENOXAPARIN SODIUM 40 MG/0.4 ML SYRINGE SUBCUT SCH (21:00)
[2020-12-04] VITALS: BP_SYST 130
--- NOTE | 2020-12-04 | NUR ---
Report received from nurse Terry zamorano continuity of pt's nursing care.
[2020-12-04] MEDS: PIPERACILLIN/TAZO 3.375/DEX-IS 50 ML IV SCH ×4 (00:03→18:18)
[2020-12-04] MEDS: KCL 20 mEq in D5NS 1000 mL 1,000 ML IV SCH ×3 (05:39→22:07)
--- NOTE | 2020-12-04 06:45 | NUR ---
All pt's needs were attended to. IVF is infusing well in [facility]. Fall and safety precautions are in place. Will endorse to day shift nurse.
[2020-12-04 07:10] LABS: BASOPHILS % (AUTO) 0.4 % (0.0-2.0); EOSINOPHILS # (AUTO) 0.2 K/uL (0.0-0.4); EOSINOPHILS % (AUTO) 1.6 % (0.0-4.0); LYMPHOCYTES # (AUTO) 1.2 K/uL (1.0-5.5); MEAN CORPUSCULAR HEMOGLOBIN 25 pg (27-31); MEAN CORPUSCULAR HGB CONC 32 % (32-36); MEAN CORPUSCULAR VOLUME 78 fL (79.0-98.0); MONOCYTES # (AUTO) 0.9 K/uL (0.0-1.0); MONOCYTES % (AUTO) 7.7 % (1.7-9.3); NEUTROPHILS % (AUTO) 79.3 % (40.0-70.0); PLATELET COUNT (AUTO) 365 K/uL (130-430); RED BLOOD CELL COUNT(AUTO) 3.59 MIL/uL (4.2-6.2); WHITE BLOOD COUNT (AUTO) 11.3 K/uL (4.8-10.8)
[2020-12-04 07:53] LABS: CALCIUM 8.7 mg/dL (8.4-11.0); CREATININE 0.74 mg/dL (0.55-1.30); POTASSIUM 4.4 mmol/L (3.5-5.1)
[2020-12-04 08:00] VITALS: BP_SYST 129
--- NOTE | 2020-12-04 10:20 | NUR ---
Dietitian Recommendations * Recommend regular diet w/ Ensure Enlive BID (ONS provides 700 kcal/day, 40 gm protein/day) * Encourage increase PO intakes LP, RD Please refer to Nutrition Assessment for details. Addendum: 12/04/20 at [address] Amended: Links added.
[2020-12-04 11:06] LABS: HEPATITIS A AB, IgM Negative (Negative); HEPATITIS B CORE AB, IgM Negative (Negative); HEPATITIS B SURFACE AG Negative (Negative)
[2020-12-04 15:54] VITALS: BP_SYST 135
--- NOTE | 2020-12-04 19:00 | NUR ---
closing notes was seen bu dr de la paz and dr butr. iv infiltrated on the l ac and was restarted by cassie on the r hand. no infiltration noted. advised to be npo for ultrasound of the abd in am.
--- NOTE | 2020-12-04 19:25 | NUR ---
RECEIVED REPORT FROM MYRIAM RNNICK.. PT AAOX4, STANDING AT BEDSIDE, COMBING HER LONG HAIR (WAIST LENGTH), REQUESTING A STOOL SOFTENER, STATING SHE HAS A HISTORY OF CONSTIPATION, AND EXPERIENCING IT NOW. NAD NOTED. WILL CALL MD FOR ORDERS
--- NOTE | 2020-12-04 20:00 | NUR ---
CALL TO DR NASH FOR NEW ORDERS RE: CONSTIPATION
--- NOTE | 2020-12-04 20:22 | NUR ---
Devorah Butt s/w Leslie
[2020-12-04 20:25] VITALS: BP_SYST 130
[2020-12-04] MEDS ORDERED: ONDANSETRON HCL 4 MG/2 ML VIAL IVP PRN (20:30)
[2020-12-04] MEDS ORDERED: ACETAMINOPHEN 325 MG TABLET PO PRN (20:30)
--- NOTE | 2020-12-04 20:33 | NUR ---
S/W DR OCHOA, NEW ORDERS FOR CONSTIPATION GIVEN
[2020-12-04] MEDS ORDERED: MILK OF MAGNESIA 30 ML UDC PO PRN (20:45)
[2020-12-04] MEDS ORDERED: ENOXAPARIN SODIUM 40 MG/0.4 ML SYRINGE SUBCUT SCH (21:00)
[2020-12-04] MEDS: DOCUSATE SODIUM 100 MG CAPSULE PO SCH (22:33)
[2020-12-05] MEDS: PIPERACILLIN/TAZO 3.375/DEX-IS 50 ML IV SCH ×3 (00:12→11:27)
--- NOTE | 2020-12-05 02:00 | NUR ---
ON ROUNDS PT ASLEEP, NO S/S OF RESP DISTRESS NOTED.
--- NOTE | 2020-12-05 05:00 | NUR ---
PT MAINTAINED NPO FOR THIS AM US. PT VERBALIZED HAVING A NORMAL AMT, BROWN IN COLOR STOOL OUTPUT. MOM AND COLACE WERE EFFECTIVE, PT CONT BEING NPO.
[2020-12-05] MEDS: KCL 20 mEq in D5NS 1000 mL 1,000 ML IV SCH (06:41)
--- NOTE | 2020-12-05 07:20 | NUR ---
opening note received sbar from night RN, patient in bed, respirations even, non labored, bed in low and locked position call light within reach
--- NOTE | 2020-12-05 07:20 | NUR ---
REPORT TO DOREEN MIGUEL RN. PT AWAKE WATCHING TV, PENDING US. NO RESP DISTRESS NOTED.
[2020-12-05 07:31] LABS: BASOPHILS % (AUTO) 0.7 % (0.0-2.0); EOSINOPHILS # (AUTO) 0.4 K/uL (0.0-0.4); EOSINOPHILS % (AUTO) 7.7 % (0.0-4.0); HEMATOCRIT 31.2 % (36-48); HEMOGLOBIN 10.2 g/dL (12.0-16.0); LYMPHOCYTES # (AUTO) 1.7 K/uL (1.0-5.5); LYMPHOCYTES % (AUTO) 34.9 % (20.5-51.5); MEAN CORPUSCULAR HEMOGLOBIN 25 pg (27-31); MEAN CORPUSCULAR HGB CONC 33 % (32-36); MEAN CORPUSCULAR VOLUME 77 fL (79.0-98.0); MONOCYTES # (AUTO) 0.5 K/uL (0.0-1.0); MONOCYTES % (AUTO) 10.1 % (1.7-9.3); NEUTROPHILS # (AUTO) 2.2 K/uL (1.8-7.7); NEUTROPHILS % (AUTO) 46.6 % (40.0-70.0); PLATELET COUNT (AUTO) 445 K/uL (130-430); RED BLOOD CELL COUNT(AUTO) 4.04 MIL/uL (4.2-6.2); RED CELL DISTRIBUTION WIDTH 16.8 % (9.0-15.0); WHITE BLOOD COUNT (AUTO) 4.8 K/uL (4.8-10.8)
[2020-12-05 08:00] VITALS: BP_SYST 143
--- NOTE | 2020-12-05 08:00 | NUR ---
nurse note obtained vs, patient in bed, respirations even, non labored, bed in low and locked position call light within reach, patient able to ambulate independently. patient denies any pain or discomfort
[2020-12-05] MEDS: DOCUSATE SODIUM 100 MG CAPSULE PO SCH (08:08)
[2020-12-05 08:25] LABS: ALBUMIN 3.1 g/dL (3.4-4.8); CALCIUM 8.7 mg/dL (8.4-11.0); CREATININE 0.74 mg/dL (0.55-1.30); POTASSIUM 3.5 mmol/L (3.5-5.1); TOTAL BILIRUBIN 0.3 mg/dL (0.0-1.0)
--- NOTE | 2020-12-05 11:32 | NUR ---
NURSE NOTE PATIENT IN BED, RESPIRATIONS EVEN, NON LABORED, BED IN LOW AND LOCKED POSITION CALL LIGHT WITHIN REACH, PATIENT DENIES ANY PAIN OR DISCOMFORT, ADMINISTERED MEDICATION
[2020-12-05 13:12] VITALS: BP_SYST 131
--- NOTE | 2020-12-05 13:36 | NUR ---
nurse note patient in bed, respirations even, non labored, bed in low and locked position call light within reach, patien denies any pain or discomfort
--- NOTE | 2020-12-05 15:43 | NUR ---
D/C Patient Patient given medication reconciliation form and D/C instructions. Exit Care provided. Patient verbalized understanding. MD discussed with patient the results and treatment provided. Ambulatory with steady gait for discharge to home. Patient in stable condition, ID band removed. IV catheter removed, intact and dressing applied, no active bleeding. Rx of Cipro given. Patient educated on pain management. All belongings sent with patient. Taken to parking lot via wheel chair to waiting car.
== END 2020-12-05 15:35 | disposition home or self-care (01) | DRG 871 ==
LOC: SED 18:26 → STU 22:44
PROVIDERS: ADMIT Family Medicine; ATTEND Family Medicine
PROC: 009U3ZX Drainage of Spinal Canal, Percutaneous Approach, Diagnostic (ICD-10-PCS; principal; 2020-12-03)
DX: A41.9 Sepsis, unspecified organism (principal); A92.32 West Nile virus infection with other neurologic manifestation; L03.114 Cellulitis of left upper limb; N39.0 Urinary tract infection, site not specified; R74.01 Elevation of levels of liver transaminase levels; Z20.822 Contact with and (suspected) exposure to COVID-19; Z80.51 Family history of malignant neoplasm of kidney
CPT/HCPCS: 36415; 70450-TC; 71045; 76376; 76700-TC; 80048; 80053; 81000-TC; 82947-TC; 83605; 84157-TC; 85025; 85048; 86705; 86709; 86710; 87040-TC; 87070-TC; 87205-TC; 87340; 89051-TC; 93005; 96365; 96366; 96367; 96368; 96375; 99291; 99292; G0378; J0290; J0696; J1100; J1650; J2543; J3370; J7060; J7120